=== PATIENT | female | born 1995 | race American Indian/Alaskan Native ===

== ENCOUNTER 2019-04-28 10:37 | Outpatient (CLI) | payer MEDICAID ==
[2019-04-28 11:37] LABS: Basophils % (Auto) 0.2 % (0.0-1.8); Eosinophils # (Auto) 0.3 K/mm3 (0.0-0.4); Eosinophils % (Auto) 3.3 % (0.0-4.3); Hematocrit 38.8 % (30.3-42.9); Hemoglobin 12.9 gm/dl (10.1-14.3); Lymphocytes # (Auto) 1.6 K/mm3 (1.2-5.4); Lymphocytes % (Auto) 20.4 % (13.4-35.0); Mean Corpuscular HGB Conc 33 % (30-34); Mean Corpuscular Volume 84 fl (79-97); Monocytes # (Auto) 0.5 K/mm3 (0.0-0.8); Monocytes % (Auto) 6.2 % (0.0-7.3); Platelet Count 285 K/mm3 (140-440); Red Blood Count 4.63 M/mm3 (3.65-5.03); Red Cell Distribution Width 15.2 % (13.2-15.2)
[2019-04-28] MEDS ORDERED: LACTATED RINGERS 500 ML IV ONE (11:47)
[2019-04-28 11:54] LABS: Alanine Aminotransferase 27 units/L (7-56); Albumin 3.7 g/dL (3.9-5); BUN/Creatinine Ratio 12; Blood Urea Nitrogen 6 mg/dL (7-17); Calcium 9.3 mg/dL (8.4-10.2); Hemolysis Index 0
--- NOTE | 2019-04-28 13:23 | Ultrasound Report ---
OB Ultrasound HISTORY: Abd pain, . TECHNIQUE: Grayscale and color imaging performed. COMPARISON: None FINDINGS: There is a single viable intrauterine gestation which is cephalic in presentation with hear t rate of 152 bpm. Placenta is anterior in location. Amniotic fluid volume is grossly unremarkable wi th the deepest vertical pocket exceeding 2 cm. Limited anatomic survey is unremarkable. Overall EGA i s 20 weeks and 4 days by ultrasound compared to 20 weeks and 5 days by clinical age. Estimated delive ry date is 09/11/2019. Cervical length was not evaluated on this exam. The bladder was not full to allo w for an adequate acoustic window. IMPRESSION: Single viable intrauterine gestation as above. Signer Name: Robin Perez MD Signed: 04/28/2019 1:19 PM Workstation Name: [id number]
[2019-04-28 13:48] VITALS: BP 118/63
[2019-04-28 14:37] LABS: Bilirubin,Urine NEG (Negative); Blood,Urine NEG (Negative); Color,Urine Yellow (Yellow); Mucus,Urine 2+ /HPF; Protein,Urine <15 mg/dL mg/dL (Negative); Urobilinogen,Urine < 2.0 mg/dL (<2.0)
== END 2019-04-28 14:40 | disposition home or self-care (01) ==
LOC: EDSTATUS 11:13 → TRG 11:20
PROVIDERS: ATTEND Obstetrics & Gynecology
DX: O26.892 Other specified pregnancy related conditions, second trimester (principal); N64.4 Mastodynia; R10.9 Unspecified abdominal pain; Z3A.20 20 weeks gestation of pregnancy
CPT/HCPCS: 36415; 76805; 80053; 81001; 85025